=== PATIENT | female | born 1965 | race Caucasian/White ===

== ENCOUNTER 2024-12-04 21:40 | Emergency (ER) | payer SELFPAY ==
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
--- NOTE | 2024-12-04 21:53 | PC.NURSE ---
pt upset and very angry and refused vitals signs
--- NOTE | 2024-12-04 22:03 | PC.NURSE ---
PT REFUSED CARE.
== END 2024-12-04 22:16 ==
PROVIDERS: Emergency Provider Emergency Medicine
DX: Z02.89 Encounter for other administrative examinations (principal); Z04.1 Encounter for examination and observation following transport accident
CPT/HCPCS: 99281